=== PATIENT | male | born 1975 | race Caucasian/White ===

== ENCOUNTER 2020-06-26 01:28 | Emergency (ER) | payer OTHER ==
--- NOTE | 2020-06-26 07:36 | ER Document Report ---
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 Patient's brother brought him here attempting to get him into detox. States he was not ready to be discharged from [facility]. 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 Patient had a paracentesis performed yesterday. Denies all symptoms at this time outside of generalized weakness - Related Data Allergies/Adverse Reactions: Penicillins Allergy (Verified 06/26/20 02:21) Home Medications: lactoluse, virt-phos 250nuetral, magnesium,klor, folic acid,lasix, aldactonevit b1 Past Medical History - Social History Smoking Status: Current Some Day Smoker Frequency of alcohol use: 5 days ago Family History: None Review of Systems - Review of Systems Notes: REVIEW OF SYSTEMS: CONSTITUTIONAL: -fevers, -chills EENT: -eye pain, -difficulty swallowing, -nasal congestion CARDIOVASCULAR: -chest pain, -syncope. RESPIRATORY: -cough, -SOB GASTROINTESTINAL: -abdominal pain, -nausea, -vomiting, -diarrhea GENITOURINARY: -dysuria, -hematuria MUSCULOSKELETAL: -back pain, -neck pain SKIN: -rash or skin lesions. HEMATOLOGIC: -easy bruising or bleeding. LYMPHATIC: -swollen, enlarged glands. NEUROLOGICAL: -altered mental status or loss of consciousness, -headache, - neurologic symptoms PSYCHIATRIC: -anxiety, -depression. ALL OTHER SYSTEMS REVIEWED AND NEGATIVE. Physical Exam - Vital signs Vitals: Temp Pulse Resp BP Pulse Ox 98.7 F 115 H 18 119/83 97 06/26/20 01:35 06/26/20 01:35 06/26/20 01:35 06/26/20 01:35 06/26/20 01:35 - Notes Notes: PHYSICAL EXAMINATION: GENERAL: Well-appearing, well-nourished and in no acute distress. HEAD: Atraumatic, normocephalic. EYES: Pupils equal round, sclera anicteric, conjunctiva are normal. ENT: Surgical mask in place. NECK: Normal range of motion, LUNGS: No respiratory Distress, normal chest rise EXTREMITIES: Normal range of motion, No cyanosis. NEUROLOGICAL: Cranial nerves grossly intact. Normal speech, PSYCH: Normal mood, normal affect. SKIN: Warm, Dry, Course - Re-evaluation Re-evalutation: 06/26/20 12:27 Well-appearing man just discharged from outside hospital less than 12 hours ago. Patient was sent over for evaluation before going to alcohol rehab facility. Patient has no complaints. Brother very helpful on the phone with this. Patient is a very poor historian Benign physical exam labs are normal for this patient no gross abnormality. Patient is mildly elevated bilirubin Patient be discharged home to alcohol rehab facility - Vital Signs Vital signs: Temp Pulse Resp BP Pulse Ox 98.2 F 105 H 10 L 104/71 95 06/26/20 10:25 06/26/20 04:55 06/26/20 10:25 06/26/20 10:25 06/26/20 10:25 - Laboratory Result Diagrams: 06/26/20 10:00 06/26/20 10:00 Laboratory results interpreted by me: 06/26/20 06/26/20 10:00 10:00 Sodium 128.0 L Potassium 3.4 L Chloride 88 L Carbon Dioxide 31 H Creatinine 0.50 L Glucose 114 H Calcium 8.3 L Total Bilirubin 11.5 H Direct Bilirubin 5.7 H AST 78 H Alkaline Phosphatase 174 H Albumin 3.2 L Urine Protein 100 H Urine Glucose (UA) 50 H Urine Ketones TRACE H Urine Bilirubin SMALL H Urine Urobilinogen 4.0 H Discharge - Discharge Clinical Impression: Weakness Condition: Stable Disposition: HOME, SELF-CARE Instructions: Liver Function Abnormality ([facility])
[2020-06-26 10:44] LABS: ALBUMIN 3.2 g/dL (3.5-5.0); ALKALINE PHOSPHATASE 174 U/L (38-126); ANION GAP 9 (5-19); APPEARANCE,URINE SLIGHTLY-CLOUDY; ASPARTATE AMINO TRANSFERASE 78 U/L (17-59); BILIRUBIN,DIRECT 5.7 mg/dL (0.0-0.4); BILIRUBIN,TOTAL 11.5 mg/dL (0.2-1.3); BILIRUBIN,URINE SMALL (NEGATIVE); BLOOD UREA NITROGEN 8 mg/dL (7-20); CALCIUM 8.3 mg/dL (8.4-10.2); CARBON DIOXIDE 31 mmol/L (22-30); CHLORIDE 88 mmol/L (98-107); COLOR,URINE AMBER; GLUCOSE 114 mg/dL (75-110); GLUCOSE, URINE 50 mg/dL (NEGATIVE); KETONES,URINE TRACE mg/dL (NEGATIVE); LEUKOCYTE ESTERASE,URINE NEGATIVE (NEGATIVE); NITRITE,URINE NEGATIVE (NEGATIVE); POTASSIUM 3.4 mmol/L (3.6-5.0); PROTEIN,URINE 100 mg/dL (NEGATIVE); TOTAL PROTEIN 6.6 g/dL (6.3-8.2); URINE SPECIFIC GRAVITY 1.025
[2020-06-26 14:29] VITALS: BP 108/51
== END 2020-06-26 14:58 | disposition home or self-care (01) ==
LOC: ER 01:28
DX: R53.1 Weakness (principal); K72.90 Hepatic failure, unspecified without coma; F17.200 Nicotine dependence, unspecified, uncomplicated; Z98.890 Other specified postprocedural states; Z79.899 Other long term (current) drug therapy; Z88.0 Allergy status to penicillin
CPT/HCPCS: 36415; 80053; 80307; 81001; 82140; 83690; 99283